=== PATIENT | female | born 1960 | race Hispanic/Latino ===

== ENCOUNTER → 2019-07-25 | Outpatient (CLI) | payer BC | END | disposition home or self-care (01) | LOC: OIH 09:36 | PROVIDERS: ATTEND Internal Medicine | DX: R05 Cough (principal) | CPT/HCPCS: 71046 ==

== ENCOUNTER → 2022-03-28 | Outpatient (CLI) | payer BC | END | disposition home or self-care (01) | LOC: RAH 09:11 | PROVIDERS: ATTEND Internal Medicine | DX: N28.1 Cyst of kidney, acquired (principal); K56.41 Fecal impaction; R10.32 Left lower quadrant pain | CPT/HCPCS: 76700 ==

== ENCOUNTER → 2023-04-27 | Outpatient (CLI) | payer OTHER | END | disposition home or self-care (01) | LOC: RAH 12:45 | PROVIDERS: ATTEND Internal Medicine Cardiovascular Disease | DX: Z13.6 Encounter for screening for cardiovascular disorders (principal) | CPT/HCPCS: 75571 ==

== ENCOUNTER → 2023-08-30 | Outpatient (CLI) | payer BC ==
[2023-08-30 12:21] LABS: ALBUMIN 3.9 g/dL (3.5-5.0); BILIRUBIN,TOTAL 0.4 mg/dL (0.2-1.0); CREATININE 0.6 mg/dL (0.5-1.0)
== END | disposition home or self-care (01) ==
LOC: LAB 08:16
PROVIDERS: ATTEND Internal Medicine Cardiovascular Disease
DX: R06.02 Shortness of breath (principal); R07.9 Chest pain, unspecified
CPT/HCPCS: 36415; 80053

== ENCOUNTER → 2023-09-04 | Outpatient (CLI) | payer BC ==
[~2023-09-04] MED LIST: IOHEXOL 350 MG/ML 100ML INFUS..BTL IV ONE; METOPROLOL TARTRATE 1 MG/ML 5ML VIAL IV ONE
== END | disposition home or self-care (01) ==
LOC: RAH 08:50
PROVIDERS: ATTEND Internal Medicine Cardiovascular Disease
DX: I25.10 Atherosclerotic heart disease of native coronary artery without angina pectoris (principal); R07.9 Chest pain, unspecified; R06.02 Shortness of breath
CPT/HCPCS: 75574; J3490; Q9967

== ENCOUNTER 2024-03-28 09:14 | Emergency (ER) | payer BC, MEDICARE ==
[~2024-03-28] VITALS: Ht 154.9 cm; Wt 67.1 kg
[2024-03-28] MEDS ORDERED: IOHEXOL 350 MG/ML 100ML INFUS..BTL IV ONE (09:15)
[2024-03-28 09:16] VITALS: TEMP 98.2
--- NOTE | 2024-03-28 09:27 | ERN ---
General Chief Complaint: Abdominal Pain Stated Complaint: ABDOMINAL PAIN Time Seen by MD: 09:19 Source: patient, family History of Present Illness Initial Comments Patient is a 64-year-old female coming in to be evaluated for left-sided abdominal pain. Patient states that the abdominal pain has started seven days ago. She states that the pain is present on the left side of the abdominal region waxes and wanes but has not been relieved completely. No fever no chills. Allergies: Coded Allergies: No Known Drug Allergies (Verified Allergy, Unknown, 08/12/21) Past Medical History Past Medical History: Diabetes-Type II, High Cholesterol, Hypertension, Hypothyroid Past Surgical History: None ROS Dictation CONSTITUTIONAL: No chills, no fever, no weakness, no diaphoresis, no malaise. HEAD/FACE: No signs of trauma. EENT: No eye pain, no blurred vision, no tearing, no double vision, no ear pain, no ear discharge, no nose pain, no nasal congestion, no throat pain, no throat swelling, no mouth pain. RESPIRATORY: No cough, no orthopnea, no SOB, no stridor, no wheezing. CARDIOVASCULAR: No chest pain, no edema, no palpitations, no syncope. GASTROINTESTINAL/ABDOMINAL: abdominal pain, no constipation, no diarrhea, no nausea, no vomiting. GENITOURINARY: No abnormal discharge, no dysuria, no frequent urination, no hematuria. No complaints of pain in the genitals. MUSCULOSKELETAL: No back pain, no gout, no joint pain, no joint swelling, no muscle pain, no muscle stiffness, no neck pain. INTEGUMENTARY: No change in color, no change in hair/nails, no dryness, no lesion, no lumps, no rash. NEUROLOGICAL/PSYCH: No anxiety, not depressed, no emotional problem, no headache, no numbness, no pre-existing deficit, no history of seizures, no tremors, no weakness. HEMATOLOGIC/LYMPHATIC: Not anemic, no history of blood clots, no apparent bleeding, no bruising, glands not swollen. All Systems Negative, Except as Noted. Physical Exam Physical Exam Dictation VITAL SIGNS: Reviewed. GENERAL APPEARANCE: Alert, oriented x3, no acute distress, obese. HEAD AND FACE: Non-traumatic. EYES: PERRL, pink conjunctivas, eyelid no trauma, anterior chamber clear. EARS: Pinnas intact and no signs of trauma or erythema. Ear canals clear and no discharge. TMs no erythema. NOSE: No discharge, no bleeding. OROPHARYNX: Mouth normal, teeth no caries, tongue pink. Pharynx clear, no erythema. Tonsils no exudates, no abscesses noted. Mucous membrane moist. NECK: Supple, non-tender, no thyromegaly, no masses, no JVD, no bruits. BREAST: Deferred. CHEST: No tenderness, no crepitus, no paradoxical movement, no retractions. LUNGS: Clear, well-ventilated, symmetric, no rales, no wheezing, no rhonchi, no stridor, good breath sounds bilaterally. HEART: Regular rate, regular rhythm, no murmur, no gallops. VASCULAR: No peripheral edema. ABDOMEN: Soft, positive bowel sounds, nondistended, no guarding, left tender, no rebound, no masses no hepatomegaly, no splenomegaly, no Burden's sign, no hernias. RECTAL: Deferred. GENITAL: Deferred. NEUROLOGICAL: Normal speech, gross motor function intact, gross sensory function intact. MUSCULOSKELETAL: Neck nontender, full range of motion, back nontender, full range of motion. EXTREMITIES: Nontender, full range of motion. SKIN: Color pink, dry, no turgor, no rash, no lacerations, no abrasions, no contusions. LYMPHATICS: Deferred. Results Laboratory and Microbiology Lab and Micro Result Laboratory Tests Test 03/28/24 09:28 03/28/24 09:36 White Blood Count 6.3 K/uL (4.8-10.8) Red Blood Count 4.62 MIL/uL (4.00-5.50) Hemoglobin 13.6 g/dL (12.0-16.0) Hematocrit 40.8 % (36-48) Mean Corpuscular Volume 88.3 fL (79-99) Mean Corpuscular Hemoglobin 29.4 pg (27.0-33.0) Mean Corpuscular Hemoglobin Concent 33.3 g/dL (32.0-36.0) Red Cell Distribution Width 14.0 % (11.0-15.5) Platelet Count 271 K/uL (130-400) Mean Platelet Volume 10.1 fL (7.5-10.5) Immature Granulocyte % (Auto) 0.5 % (0-1) Neutrophils (%) (Auto) 63.5 % (40.0-77.0) Lymphocytes (%) (Auto) 27.9 % (21.0-51.0) Monocytes (%) (Auto) 4.8 % (3.0-13.0) Eosinophils (%) (Auto) 2.7 % (0.0-8.0) Basophils (%) (Auto) 0.6 % (0.0-5.0) Neutrophils # (Auto) 4.0 K/uL (1.8-7.7) Lymphocytes # (Auto) 1.8 K/uL (1.0-4.8) Monocytes # (Auto) 0.3 K/uL (0.1-1.0) Eosinophils # (Auto) 0.17 K/uL (0.00-0.70) Basophils # (Auto) 0.04 K/uL (0.00-0.20) Absolute Immature Granulocyte (auto 0.03 K/uL (0-1) Nucleated Red Blood Cells 0.0 % (0.0-0.19) Sodium Level 143 mmol/L (136-145) Potassium Level 3.7 mmol/L (3.5-5.1) Chloride Level 107 mmol/L (101-111) Carbon Dioxide Level 28 mmol/L (21-32) Blood Urea Nitrogen 14 mg/dL (7-18) Creatinine 0.6 mg/dL (0.5-1.0) Glomerular Filtration Rate Calc 99 mL/min (>90) Random Glucose 162 mg/dL (70-105) H Total Calcium 9.2 mg/dL (8.5-10.1) Troponin I High Sensitivity < 4 ng/L (4-50) L Urine Color YELLOW (YELLOW) Urine Appearance CLEAR (CLEAR) Urine pH 6.0 (5.0-8.0) Urine Specific [place] 1.010 (1.001-1.031) Urine Protein NEGATIVE mg/dL (NEGATIVE) Urine Glucose (UA) >=1000 mg/dL (NEGATIVE) H Urine Ketones NEGATIVE mg/dL (NEGATIVE) Urine Occult Blood TRACE-INTACT (NEGATIVE) H Urine Nitrate POSITIVE (NEGATIVE) H Urine Bilirubin NEGATIVE mg/dL (NEGATIVE) Urine Urobilinogen 0.2 mg/dL (0.2-1.0) Urine Leukocyte Esterase NEGATIVE Yasemin/uL Urine RBC 0-1 /HPF (0-1) Urine WBC 0-1 /HPF (0-1) Urine Squamous Epithelial Cells Few /HPF (0-2) Urine Bacteria Few /HPF (None Seen) Labs Reviewed?: Yes EKG/XRAY/US/CT/MRI EKG Comment 03/28/2024 TIME 9:39 A.M. VENTRICULAR RATE 90 SINUS RHYTHM GA [address] WAVE ELEVATION OR DEPRESSION CT Scan Comment IMAGING REPORT Signed PATIENT: MARINA BOLTON MR#: [id number] : 1960 SEX: F AGE: 64 LOCATION: [facility] ORDER 1045 STATUS: [facility] REPORT#: [id number] SERVICE 1044 REASON: LEFT AB PAIN ORDERING PHYSICIAN: CAIN ROQUE MD PROCEDURE: ABD PEL W - CT ABDOMEN/PELVIS W/CONTRAST CT ABDOMEN/PELVIS W/CONTRAST HISTORY: Abdominal pain COMPARISON: 12/10/2008 TECHNIQUE: Multiple sequential axial images of the abdomen and pelvis were obtained from the dome of the diaphragm through symphysis pubis. Patient was given Omnipaque through intravenous route. Oral contrast was not given. FINDINGS: No pleural effusion is seen bilaterally. There is no evidence of parenchymal disease or pulmonary nodule of the visualized lower lungs. Degenerative changes of the thoracolumbar spine are present. The heart is not enlarged. Liver measures 15 cm. Multiple right renal cysts are seen with the largest measuring 7 cm. These are also seen on previous study. The liver, spleen, adrenal glands and pancreas are unremarkable. There is no evidence of hydronephrosis bilaterally. No evidence of renal stone is seen. Fecal material is seen in the colon. There are normal size retroperitoneal and mesenteric lymph nodes. No ascites is seen. Atherosclerotic changes are present. Pelvic sidewalls are symmetric bilaterally. Bladder is poorly distended. IMPRESSION: 1. Extensive right renal cysts. Diverticulosis. Fecal material in the colon. CT was performed with one or more following dose reduction techniques: automated exposure control, adjustment of the mA and kv according to patient's size, or use of a iterative reconstruction technique. DICTATED BY: KAYLEIGH DIAZ MD DATE: 03/28/24 1159 ELECTRONICALLY SIGNED BY: KAYLEIGH DIAZ MD DATE: 03/28/24 1201 MDM MDM: DIFFERENTIAL DIAGNOSIS: CONSTIPATION, UTI, RENAL CYST PATIENT IS A 64-YEAR-OLD FEMALE COMING IN TO BE EVALUATED FOR LEFT ABDOMINAL PAIN. CT DISCLOSE CONSTIPATION. MILD NITRATE POSITIVE URINE. PATIENT WAS ASYMPTOMATIC ANTIBIOTICS WERE PRESCRIBED I ADVISED HER APPROPRIATE FOLLOW UP WITH PCP URIEL SEW ON OPERATOR. ED Course Orders Procedure Category Date Status Time Cbc With Differential LAB 03/28/24 Complete 09: Urinalysis Profile LAB 03/28/24 Complete : Basic Metabolic Panel LAB 03/28/24 Complete 09: 12 Lead Ekg Tracing- EKG 03/28/24 Complete Technical 09:23 Troponin I High LAB 03/28/24 Complete Sensitivity 09:23 Culture Urine GARETH 03/28/24 In Process 10:29 Ct Abdomen/Pelvis CT 03/28/24 Resulted W/Contrast 10:44 Vital Signs Date Time Temp Pulse Resp B/P (MAP) Pulse Ox O2 Delivery O2 Flow Rate FiO2 03/28/24 11:02 81 20 140/78 96 Room Air* 0 21 03/28/24 09:16 98.2 92 16 170/90 98 Room Air* 0 21 03/28/24 09:16 98.2 92 16 170/90 98 Room Air 0 DX & DISP Disposition: Discharge Departure Impression: Primary Impression: UTI (urinary tract infection) Additional Impressions: Constipation, Renal cyst Condition: Stable Scripts Nitrofurantoin Monohyd/M-Cryst (Macrobid 100 mg Capsule) 100 Mg Capsule 1 CAP PO BID for 7 Days, #14 CAP 0 Refills Prov: CAIN ROQUE MD 03/28/24 Linaclotide (Linzess) 72 Mcg Capsule 72 MCG PO DAILY for 10 Days, #30 CAP Prov: CAIN ROQUE MD 03/28/24 Additional Instructions: FOLLOW-UP WITH PRIMARY CARE PROVIDER IN 1 TO 2 DAYS. TAKE MEDICATIONS DIRECTED HERE IN THE EMERGENCY ROOM. OKAY TO CONTINUE HOME MEDICATIONS UNLESS OTHERWISE DISCUSSED DURING YOUR VISIT IN THE EMERGENCY ROOM TODAY. RETURN TO YOUR NEAREST EMERGENCY ROOM IF SYMPTOMS WORSEN OR IF THERE IS NO IMPROVEMENT. CALL 911 IF YOU NEED IMMEDIATE ASSISTANCE. TAKE TYLENOL [id number] NEEDED AND IF NO CONTRAINDICATIONS ARE PRESENT. INCREASE ORAL HYDRATION. A WOU ND CULTURE OR URINE CULTURE WAS ORDERED HERE IN THE EMERGENCY ROOM DEPARTMENT PLEASE FOLLOW-UP WITH PRIMARY CARE PROVIDER AND ADVISE THEM TO GET REPEAT PORTS FROM OUR FACILITY. IF YOU HAD ANY LIZETTE WRAP/SPLINTS THAT WERE APPLIED HERE, PLEASE DO NOT REMOVE THEM UNTIL YOU SEE YOUR PRIMARY CARE OR SPECIALTY. REFERRALS: Referrals: HALEY KABA MD (PCP) Time of Disposition: 12:24 CAIN ROQUE MD Mar 28, 2024 09:27
[2024-03-28 09:40] LABS: BASOPHILS # (AUTO) 0.04 K/uL (0.00-0.20); BASOPHILS % (AUTO) 0.6 % (0.0-5.0); EOSINOPHILS # (AUTO) 0.17 K/uL (0.00-0.70); EOSINOPHILS % (AUTO) 2.7 % (0.0-8.0); HEMATOCRIT 40.8 % (36-48); IMMATURE GRANULOCYTE ABSOLUTE 0.03 K/uL (0-1); LYMPHOCYTES # (AUTO) 1.8 K/uL (1.0-4.8); LYMPHOCYTES % (AUTO) 27.9 % (21.0-51.0); MEAN CORPUSCULAR HEMOGLOBIN 29.4 pg (27.0-33.0); MEAN CORPUSCULAR HGB CONC 33.3 g/dL (32.0-36.0); MEAN CORPUSCULAR VOLUME 88.3 fL (79-99); MONOCYTES # (AUTO) 0.3 K/uL (0.1-1.0); MONOCYTES % (AUTO) 4.8 % (3.0-13.0); NEUTROPHILS % (AUTO) 63.5 % (40.0-77.0); PLATELET COUNT (AUTO) 271 K/uL (130-400); RED BLOOD CELL COUNT(AUTO) 4.62 MIL/uL (4.00-5.50); WHITE BLOOD COUNT (AUTO) 6.3 K/uL (4.8-10.8)
--- NOTE | 2024-03-28 09:45 | EKG ---
[facility] Test Date: 2024-03-28 Test Time: 09:39:39 Pat Name: MARINA BOLTON Department[facility] Room: Gender: F Residential Builder: [id number] : 1960 Requested By: CAIN ROQUE Order Number: [id number] Reading MD: Alexy Zavala Measurements Intervals [place] Rate: 90 P: 38 MS: 180 QRS: -12 QRSD: 81 T: -4 QT: 350 QTc: 428 Interpretive Statements Sinus rhythm Inferior infarct, old No previous ECG available for comparison Electronically Signed On 03-30-2024 17:35:06 [employer] by Alexy Zavala Please click the below link to view image of tracing.
[2024-03-28 09:49] LABS: CREATININE 0.6 mg/dL (0.5-1.0); POTASSIUM 3.7 mmol/L (3.5-5.1)
[2024-03-28 10:28] LABS: APPEARANCE,URINE CLEAR (CLEAR); BILIRUBIN,URINE NEGATIVE (NEGATIVE); COLOR,URINE YELLOW (YELLOW); GLUCOSE, URINE (UA) >=1000 mg/dL (NEGATIVE); KETONES,URINE NEGATIVE (NEGATIVE); LEUKOCYTE ESTERASE ,URINE NEGATIVE Leu/uL (NEGATIVE); NITRATE,URINE POSITIVE (NEGATIVE); OCCULT BLOOD,URINE TRACE-INTACT (NEGATIVE); PROTEIN,URINE NEGATIVE (NEGATIVE); UROBILINOGEN,URINE 0.2 mg/dL (0.2-1.0)
[2024-03-28 10:29] LABS: ADD UA MICROSCOPIC YES
[2024-03-28 10:33] LABS: RBC,URINE 0-1 /HPF (0-1); SQUAMOUS EPITHELIAL CELL,UR Few /HPF (0-2); WBC,URINE 0-1 /HPF (0-1)
[2024-03-28 10:34] LABS: BACTERIA,URINE Few /HPF (None Seen)
[2024-03-28 11:02] VITALS: BP 140/78; PULSE 81; RESP 20; O2SAT 96
--- NOTE | 2024-03-28 12:01 | HMCIMG ---
CT ABDOMEN/PELVIS W/CONTRAST HISTORY: Abdominal pain COMPARISON: 12/10/2008 TECHNIQUE: Multiple sequential axial images of the abdomen and pelvis were obtained from the dome of the diaphragm through symphysis pubis. Patient was given Omnipaque through intravenous route. Oral contrast was not given. FINDINGS: No pleural effusion is seen bilaterally. There is no evidence of parenchymal disease or pulmonary nodule of the visualized lower lungs. Degenerative changes of the thoracolumbar spine are present. The heart is not enlarged. Liver measures 15 cm. Multiple right renal cysts are seen with the largest measuring 7 cm. These are also seen on previous study. The liver, spleen, adrenal glands and pancreas are unremarkable. There is no evidence of hydronephrosis bilaterally. No evidence of renal stone is seen. Fecal material is seen in the colon. There are normal size retroperitoneal and mesenteric lymph nodes. No ascites is seen. Atherosclerotic changes are present. Pelvic sidewalls are symmetric bilaterally. Bladder is poorly distended. IMPRESSION: 1. Extensive right renal cysts. Diverticulosis. Fecal material in the colon. CT was performed with one or more following dose reduction techniques: automated exposure control, adjustment of the mA and kv according to patient's size, or use of a iterative reconstruction technique.
[2024-03-28] MEDS ORDERED: LINA72CA PO (12:28)
[2024-03-28] MEDS ORDERED: NITR100C4 PO (12:28)
[2024-03-28] MEDS ORDERED: CEPH500B PO (13:48)
== END 2024-03-28 13:55 | disposition home or self-care (01) ==
LOC: EDH 09:14
DX: N39.0 Urinary tract infection, site not specified (principal); K59.00 Constipation, unspecified; N28.1 Cyst of kidney, acquired; E03.9 Hypothyroidism, unspecified; E11.9 Type 2 diabetes mellitus without complications; E78.00 Pure hypercholesterolemia, unspecified; I10 Essential (primary) hypertension
CPT/HCPCS: 99284; 74177; 84484; 80048; 85025; 87086; 81001; 36415; 93005; Q9967

== ENCOUNTER → 2024-10-10 | Outpatient (CLI) | payer BC ==
[~2024-10-10] MED LIST changes: +CEPH500B PO; -IOHEXOL 350 MG/ML 100ML INFUS..BTL IV ONE; +LINA72CA PO; -METOPROLOL TARTRATE 1 MG/ML 5ML VIAL IV ONE; +NITR100C4 PO
--- NOTE | 2024-10-10 14:37 | HMCIMG ---
US PELVIC NON-OB COMP HISTORY: Pelvic pain COMPARISON: None TECHNIQUE: Transabdominal pelvic ultrasound study was performed. FINDINGS: The uterus has been removed. Right ovary is not seen. Left ovary measures 2.6 x 1.5 x 2.3 cm. Flow is seen in left ovary. The study is limited due to overlying bowel gas. No free fluid is seen in the cul-de-sac. IMPRESSION: 1. No adnexal mass is seen.
--- NOTE | 2024-10-10 14:46 | HMCIMG ---
US ABDOMINAL COMPLETE HISTORY: Left lower abdominal pain COMPARISON: 03/28/2022 TECHNIQUE: Multiple transverse and longitudinal ultrasound images of the abdomen were obtained. FINDINGS: Abdominal aorta and inferior vena cava are unremarkable. The visualized portion of the pancreas is within normal limits. Liver measures 15.7 cm. No gallstone is seen. Common duct measures 4 mm. No evidence of gallbladder wall thickening is seen. Both kidneys are seen. Right kidney measures 4.3 x 7.1 x 7.1 cm. Multiple right renal cysts are seen with the largest measuring 7.4 cm unchanged from previous study. Left kidney measures 13 x 5.8 x 4.9 cm. No hydronephrosis is seen of the both kidneys. Spleen measures 10.9 cm. The spleen is grossly unremarkable. IMPRESSION: 1. No gallstone or ductal dilatation is seen. 2. No hydronephrosis is seen.
== END | disposition home or self-care (01) ==
LOC: RAH 07:43
PROVIDERS: ATTEND Internal Medicine
DX: R10.2 Pelvic and perineal pain (principal); R10.32 Left lower quadrant pain
CPT/HCPCS: 76700; 76856

== ENCOUNTER 2024-11-06 14:05 | Emergency (ER) | payer BC ==
[~2024-11-06] VITALS: Ht 152.4 cm; Wt 67.1 kg
[2024-11-06 14:42] LABS: IMMATURE GRANULOCYTE ABSOLUTE 0.05 K/uL (0-1); NUCLEATED RED BLOOD CELLS 0.0 % (0.0-0.19); PLATELET COUNT (AUTO) 301 K/uL (130-400); RED BLOOD CELL COUNT(AUTO) 4.73 MIL/uL (4.00-5.50); RED CELL DISTRIBUTION WIDTH 14.3 % (11.0-15.5); WHITE BLOOD COUNT (AUTO) 8.6 K/uL (4.8-10.8)
[2024-11-06 14:58] LABS: CREATININE 0.5 mg/dL (0.5-1.0); GLOMERULAR FILTR. RATE CALC 103.0 mL/min (>90); GLUCOSE,RANDOM 101.0 mg/dL (70-105); SODIUM SERUM 143.0 mmol/L (136-145); UREA NITROGEN, BLOOD 15.0 mg/dL (7-18)
--- NOTE | 2024-11-06 16:11 | HMCIMG ---
Exam: Ultrasound limited left upper and lower quadrants. History: Left lower quadrant and left upper quadrant pain. Static lauren scale images were obtained. Findings: No mass, fluid collection or sonographic abnormality in the area of concern. Impression: No sonographic abnormality /[place]
--- NOTE | 2024-11-06 16:25 | ERN ---
General Chief Complaint: Rectal Bleed Stated Complaint: RECTAL BLEEDING Time Seen by MD: 14:07 Source: patient History of Present Illness Initial Comments Patient is a 64-year-old female coming in complaining of lower left abdominal pain. Patient states that this has been ongoing for several months. Patient was evaluated in the ER couple of months ago for the same reason CT did not disclose acute findings. Shortly after that patient had an ultrasound performed but was not satisfied with the ultrasound report. Patient is here for further evaluation she also states that today she while defecating she noticed bright red blood in her stool. Allergies: Coded Allergies: No Known Drug Allergies (Verified Allergy, Unknown, 08/12/21) hyoscyamine (Unverified Allergy, Unknown, 11/06/24) nitrofurantoin (Unverified Allergy, Unknown, 03/28/24) Home Meds Active Scripts Cephalexin Monohydrate (Keflex) 500 Mg Cap, 1 CAP PO TID for 10 Days, #30 CAP 0 Refills Prov:CAIN ROQUE MD 03/28/24 Nitrofurantoin Monohyd/M-Cryst (Macrobid 100 mg Capsule) 100 Mg Capsule, 1 CAP PO BID for 7 Days, #14 CAP 0 Refills Prov:CAIN ROQUE MD 03/28/24 Linaclotide (Linzess) 72 Mcg Capsule, 72 MCG PO DAILY for 10 Days, #30 CAP Prov:CAIN ROQUE MD 03/28/24 Past Medical History Past Medical History: Diabetes-Type II, High Cholesterol, Hypertension, Hypothyroid Past Surgical History: Hysterectomy, Tonsillectomy, BTL ROS Dictation CONSTITUTIONAL: No chills, no fever, no weakness, no diaphoresis, no malaise. HEAD/FACE: No signs of trauma. EENT: No eye pain, no blurred vision, no tearing, no double vision, no ear pain, no ear discharge, no nose pain, no nasal congestion, no throat pain, no throat swelling, no mouth pain. RESPIRATORY: No cough, no orthopnea, no SOB, no stridor, no wheezing. CARDIOVASCULAR: No chest pain, no edema, no palpitations, no syncope. GASTROINTESTINAL/ABDOMINAL: No abdominal pain, no constipation, no diarrhea, no nausea, no vomiting. GENITOURINARY: No abnormal discharge, no dysuria, no frequent urination, no hematuria. No complaints of pain in the genitals. MUSCULOSKELETAL: No back pain, no gout, no joint pain, no joint swelling, no muscle pain, no muscle stiffness, no neck pain. INTEGUMENTARY: No change in color, no change in hair/nails, no dryness, no lesion, no lumps, no rash. NEUROLOGICAL/PSYCH: No anxiety, not depressed, no emotional problem, no headache, no numbness, no pre-existing deficit, no history of seizures, no tremors, no weakness. HEMATOLOGIC/LYMPHATIC: Not anemic, no history of blood clots, no apparent bleeding, no bruising, glands not swollen. All Systems Negative, Except as Noted. Physical Exam Physical Exam Dictation VITAL SIGNS: Reviewed. GENERAL APPEARANCE: Alert, oriented x3, no acute distress, obese. HEAD AND FACE: Non-traumatic. EYES: PERRL, pink conjunctivas, eyelid no trauma, anterior chamber clear. EARS: Pinnas intact and no signs of trauma or erythema. Ear canals clear and no discharge. TMs no erythema. NOSE: No discharge, no bleeding. OROPHARYNX: Mouth normal, teeth no caries, tongue pink. Pharynx clear, no erythema. Tonsils no exudates, no abscesses noted. Mucous membrane moist. NECK: Supple, non-tender, no thyromegaly, no masses, no JVD, no bruits. BREAST: Deferred. CHEST: No tenderness, no crepitus, no paradoxical movement, no retractions. LUNGS: Clear, well-ventilated, symmetric, no rales, no wheezing, no rhonchi, no stridor, good breath sounds bilaterally. HEART: Regular rate, regular rhythm, no murmur, no gallops. VASCULAR: No peripheral edema. ABDOMEN: Soft, positive bowel sounds, nondistended, no guarding, nontender, no rebound, no masses no hepatomegaly, no splenomegaly, no Burden's sign, no hernias. RECTAL: Deferred. GENITAL: Deferred. NEUROLOGICAL: Normal speech, gross motor function intact, gross sensory function intact. MUSCULOSKELETAL: Neck nontender, full range of motion, back nontender, full range of motion. EXTREMITIES: Nontender, full range of motion. SKIN: Color pink, dry, no turgor, no rash, no lacerations, no abrasions, no contusions. LYMPHATICS: Deferred. Results Laboratory and Microbiology Lab and Micro Result Laboratory Tests Test 11/06/24 14:35 11/06/24 16:14 White Blood Count 8.6 K/uL (4.8-10.8) Red Blood Count 4.73 MIL/uL (4.00-5.50) Hemoglobin 13.8 g/dL (12.0-16.0) Hematocrit 41.7 % (36-48) Mean Corpuscular Volume 88.2 fL (79-99) Mean Corpuscular Hemoglobin 29.2 pg (27.0-33.0) Mean Corpuscular Hemoglobin Concent 33.1 g/dL (32.0-36.0) Red Cell Distribution Width 14.3 % (11.0-15.5) Platelet Count 301 K/uL (130-400) Mean Platelet Volume 10.0 fL (7.5-10.5) Immature Granulocyte % (Auto) 0.6 % (0-1) Neutrophils (%) (Auto) 70.5 % (40.0-77.0) Lymphocytes (%) (Auto) 21.3 % (21.0-51.0) Monocytes (%) (Auto) 5.2 % (3.0-13.0) Eosinophils (%) (Auto) 1.9 % (0.0-8.0) Basophils (%) (Auto) 0.5 % (0.0-5.0) Neutrophils # (Auto) 6.1 K/uL (1.8-7.7) Lymphocytes # (Auto) 1.8 K/uL (1.0-4.8) Monocytes # (Auto) 0.5 K/uL (0.1-1.0) Eosinophils # (Auto) 0.16 K/uL (0.00-0.70) Basophils # (Auto) 0.04 K/uL (0.00-0.20) Absolute Immature Granulocyte (auto 0.05 K/uL (0-1) Nucleated Red Blood Cells 0.0 % (0.0-0.19) Sodium Level 143 mmol/L (136-145) Potassium Level 3.8 mmol/L (3.5-5.1) Chloride Level 106 mmol/L (101-111) Carbon Dioxide Level 30 mmol/L (21-32) Blood Urea Nitrogen 15 mg/dL (7-18) Creatinine 0.5 mg/dL (0.5-1.0) Glomerular Filtration Rate Calc 103 mL/min (>90) Random Glucose 101 mg/dL (70-105) Total Calcium 9.4 mg/dL (8.5-10.1) Urine Color LIGHT-YELLOW (YELLOW) Urine Appearance CLEAR (CLEAR) Urine pH 6.0 (5.0-8.0) Urine Specific [place] 1.016 (1.001-1.031) Urine Protein NEGATIVE mg/dL (NEGATIVE) Urine Glucose (UA) >=1000 mg/dL (NEGATIVE) H Urine Ketones NEGATIVE mg/dL (NEGATIVE) Urine Occult Blood SMALL (NEGATIVE) H Urine Nitrate NEGATIVE (NEGATIVE) Urine Bilirubin NEGATIVE mg/dL (NEGATIVE) Urine Urobilinogen 0.2 mg/dL (0.2-1.0) Urine Leukocyte Esterase NEGATIVE Yasemin/uL Urine RBC 11-25 /HPF (0-1) H Urine WBC 0-1 /HPF (0-1) Urine Squamous Epithelial Cells RARE /HPF (0-2) Urine Bacteria RARE /HPF (None Seen) Labs Reviewed?: Yes EKG/XRAY/US/CT/MRI Ultrasound Comment [address] [address] IMAGING REPORT Signed PATIENT: MARINA BOLTON MR#: [id number] : 1960 SEX: F AGE: 64 LOCATION: [facility] ORDER 33 STATUS: [facility] REPORT#: [id number] SERVICE 153 REASON: LOWER LEFT ABD PAIN ORDERING PHYSICIAN: CAIN ROQUE MD PROCEDURE: ABD WALL - US ABD LIMITED/ABD WALL Exam: Ultrasound limited left upper and lower quadrants. History: Left lower quadrant and left upper quadrant pain. Static lauren scale images were obtained. Findings: No mass, fluid collection or sonographic abnormality in the area of concern. Impression: No sonographic abnormality /[place] DICTATED BY: RICO KULKARNI MD DATE: 11/06/241709 ELECTRONICALLY SIGNED BY: RICO KULKARNI MD DATE: 11/06/240 [facility] MDM: Differential diagnosis: HEMORRHOID, HISTORY OF CONSTIPATION, Rationale: Tests considered and ordered secondary to shared decision making include: Previous outside records reviewed: Old ER visits. Risk of complication and/or morbidity or mortality of patient management: None Medications-Per medication reconciliation Need for hospitalization: Patient does not meet criteria for hospitalization. PATIENT IS A 64-YEAR-OLD FEMALE COMING IN TO BE EVALUATED FOR WHEN EPISODES OF BLOODY STOOLS. PER PATIENT HE DOES HAS A HISTORY OF INTERNAL HEMORRHOIDS WAS TOLD IN THE PAST. PATIENT STATES THAT SHE WAS STRUGGLING THIS MORNING ABOVE CONCERNED. PATIENT HAS BEEN HAVING ABDOMINAL PAIN FOR GREATER THAN TWO MONTHS. PATIENT HAS BEEN EVALUATED IN THE PAST AN ER WITH A CT AND AN ULTRASOUND. LABS WITHIN NORMAL LIMITS ULTRASOUND DID NOT CONFIRM ANY ACUTE FINDINGS. PATIENT STATES THAT SHE WILL FOLLOW UP WITH DISPENSING AUDIOLOGIST TO HAVE AN EXAM PERFORMED. SHE REFUSED RECTAL EXAM AND STATES HE WILL CONTINUE TAKING HER LINZESS PRESCRIBED BY PCP. ED Course Orders Procedure Category Date Status Time Cbc With Differential LAB 11/06/24 Complete 14:30 Basic Metabolic Panel LAB 11/06/24 Complete 14:30 Urinalysis LAB 11/06/24 Complete W/Microscopic 14:30 Us Abd Limited/Abd US 11/06/24 Resulted Wall 15:34 Vital Signs Date Time Temp Pulse Resp B/P (MAP) Pulse Ox O2 Delivery O2 Flow Rate FiO2 11/06/24 14:40 98.8 89 18 127/91 95 0 DX & DISP Disposition: Discharge Departure Impression: Primary Impression: Constipation Additional Impression: History of hemorrhoids Condition: Stable Additional Instructions: FOLLOW-UP WITH PRIMARY CARE PROVIDER IN 1 TO 2 DAYS. TAKE MEDICATIONS DIRECTED HERE IN THE EMERGENCY ROOM. OKAY TO CONTINUE HOME MEDICATIONS UNLESS OTHERWISE DISCUSSED DURING YOUR VISIT IN THE EMERGENCY ROOM TODAY. RETURN TO YOUR NEAREST EMERGENCY ROOM IF SYMPTOMS WORSEN OR IF THERE IS NO IMPROVEMENT. CALL 911 IF YOU NEED IMMEDIATE ASSISTANCE. TAKE TYLENOL [id number] NEEDED AND IF NO CONTRAINDICATIONS ARE PRESENT. INCREASE ORAL HYDRATION. A WOUND CULTURE OR URINE CULTURE WAS ORDERED HERE IN THE EMERGENCY ROOM DEPARTMENT PLEASE FOLLOW-UP WITH PRIMARY CARE PROVIDER AND ADVISE THEM TO GET REPORTS FROM OUR FACILITY. IF YOU HAD ANY LIZETTE WRAP/SPLINTS THAT WERE APPLIED HERE, PLEASE DO NOT REMOVE THEM UNTIL YOU SEE YOUR PRIMARY CARE OR SPECIALTY. REFERRALS: Referrals: HALEY KABA MD (PCP) Time of Disposition: 18:16 CAIN ROQUE MD Nov 06, 2024 16:25
[2024-11-06 16:51] LABS: APPEARANCE,URINE CLEAR (CLEAR); GLUCOSE, URINE (UA) >=1000 mg/dL (NEGATIVE); LEUKOCYTE ESTERASE ,URINE NEGATIVE Leu/uL (NEGATIVE); NITRATE,URINE NEGATIVE (NEGATIVE); OCCULT BLOOD,URINE SMALL (NEGATIVE)
[2024-11-06 16:52] LABS: SQUAMOUS EPITHELIAL CELL,UR RARE /HPF (0-2)
[2024-11-06 18:41] VITALS: BP 121/87; PULSE 85; RESP 18; TEMP 98.8; O2SAT 97
== END 2024-11-06 18:45 | disposition home or self-care (01) ==
LOC: EDH 14:05
DX: K59.00 Constipation, unspecified (principal); E03.9 Hypothyroidism, unspecified; E11.9 Type 2 diabetes mellitus without complications; E78.00 Pure hypercholesterolemia, unspecified; I10 Essential (primary) hypertension; Z88.1 Allergy status to other antibiotic agents; Z90.710 Acquired absence of both cervix and uterus
CPT/HCPCS: 36415; 76705; 80048; 81001; 85025; 99284